=== PATIENT | female | born 1960 | race Asian ===

== ENCOUNTER → 2024-06-15 | Outpatient (REF) | payer OTHER ==
[~2024-06-15] MED LIST: IOPAMIDOL 370 MG/ML 100 ML INFUS..BTL INJ ONE; METOPROLOL TARTRATE INJ 1 MG/ML VIAL ONE; NITROGLYCERIN 0.4 MG SUBL ONE; SODIUM CHLORIDE 0.9% 100 ML ONE
[2024-06-15 11:38] LABS: CREATININE, SERUM 1.21 mg/dL (0.57-1.11)
== END ==
LOC: CT 09:18
PROVIDERS: ATTEND Internal Medicine Cardiovascular Disease
DX: R07.9 Chest pain, unspecified (principal); I10 Essential (primary) hypertension; E78.2 Mixed hyperlipidemia
CPT/HCPCS: 36415; 75574; 82565; 84520; J7050; Q9967